=== PATIENT | male | born 1980 | race Caucasian/White ===

== ENCOUNTER → 2023-03-22 | Outpatient (REF) | payer BC, OTHER ==
[2023-03-22 17:54] LABS: MAU/CREAT RATIO 3.4 MCG/MG (0.0-30.0)
== END ==
LOC: M LAB REF 17:02
PROVIDERS: ATTEND Nurse Practitioner Family
DX: E11.65 Type 2 diabetes mellitus with hyperglycemia (principal)

== ENCOUNTER 2023-11-09 18:10 | Inpatient (IN) | payer BC ==
[~2023-11-09] VITALS: Ht 175.3 cm; Wt 132.3 kg
[2023-11-09] MEDS ORDERED: TIRZ2.5P (18:18)
[2023-11-09] MEDS ORDERED: MORP15TA2 PO (18:18)
[2023-11-09] MEDS ORDERED: LISI20TA33 (18:18)
[2023-11-09] MEDS ORDERED: TAMS1CAP17 (18:18)
[2023-11-09] MEDS ORDERED: OMEP-173 (18:18)
[2023-11-09] MEDS ORDERED: AMLO1TAB24 (18:18)
[2023-11-09] MEDS ORDERED: ALLO300T2 (18:18)
[2023-11-09] MEDS ORDERED: METO1TAB32 (18:18)
[2023-11-09] MEDS ORDERED: METF-838 (18:18)
[2023-11-09] MEDS ORDERED: ROSU20TA61 (18:18)
[2023-11-09 19:29] LABS: BASO % 0.3 % (0.0-1.0); EOS # 0.1 10^3/uL (0.0-0.5); EOS % 0.6 % (0.0-3.0); HEMATOCRIT 43.4 % (42.0-52.0); HEMOGLOBIN 14.9 g/dl (13.5-17.5); LYMPH # 2.3 10^3/uL (1.5-5.0); LYMPH % 19.3 % (24.0-44.0); MEAN CORPUSCULAR HEMOGLOBIN 30.4 pg (27.0-33.0); MEAN CORPUSCULAR HGB CONC 34.3 g/dl (32.0-36.5); MEAN CORPUSCULAR VOLUME 88.6 fl (80.0-96.0); MONO # 0.9 10^3/uL (0.0-0.8); MONO % 7.2 % (2.0-8.0); NEUTROPHILS # 8.5 10^3/uL (1.5-8.5); NEUTROPHILS % 72.2 % (36.0-66.0); PLATELET COUNT, AUTOMATED 206 10^3/uL (150-450); WHITE BLOOD COUNT 11.8 10^3/uL (4.0-10.0)
[2023-11-09] MEDS: NS 1,000 ML IV ONE (19:34)
[2023-11-09] MEDS: ONDANSETRON 4MG 2ML VIAL IV ONE (19:35)
[2023-11-09] MEDS: KETOROLAC 30 MG/ML 1ML VIAL IV ONE (19:35)
[2023-11-09 20:22] LABS: ALBUMIN 3.9 G/DL (3.2-5.2); ALKALINE PHOSPHATASE 67 U/L (46-116); ALT/SGPT 47 U/L (7.0-40); AST/SGOT 35 U/L (<34); BILIRUBIN,DIRECT 0.2 MG/DL (<0.4); BLOOD UREA NITROGEN 15 MG/DL (9-23); CALCIUM LEVEL 9.1 MG/DL (8.5-10.1); CARBON DIOXIDE LEVEL 27 MMOL/L (20-31); CHLORIDE LEVEL 103 MMOL/L (98-107); CREATININE FOR GFR 1.26 MG/DL (0.70-1.30); GLOMERULAR FILTRATION RATE > 60.0 (>60); GLUCOSE, FASTING 155 MG/DL (60-100); LIPASE 63 U/L (12-53); SODIUM LEVEL 138 MMOL/L (136-145); TOTAL PROTEIN 6.8 G/DL (5.7-8.2)
[2023-11-09] MEDS ORDERED: DEXTROSE 50% 50ML SYRINGE IV PRN (22:15)
[2023-11-09] MEDS ORDERED: GLUCAGON INJ 1MG VIAL SC PRN (22:15)
[2023-11-09] MEDS ORDERED: GLUCOSE 4 GM CHEW PO PRN (22:15)
[2023-11-09] MEDS: NS 1,000 ML IV SCH (22:56)
[2023-11-09] MEDS: cefTRIAXone SOD 1 GM in D5W MINI-BAG PLUS 50 ML IV SCH (23:52)
[2023-11-10] MEDS ORDERED: AMLO1TAB24 PO (00:05)
[2023-11-10] MEDS ORDERED: TIRZ2.5P SC (00:05)
[2023-11-10] MEDS ORDERED: METF-838 PO (00:05)
[2023-11-10] MEDS ORDERED: MORP15TA2 PO (00:05)
[2023-11-10] MEDS ORDERED: OMEP-173 PO (00:05)
[2023-11-10] MEDS ORDERED: FLOM0.4C39 PO (00:05)
[2023-11-10] MEDS ORDERED: ROSU20TA61 PO (00:05)
[2023-11-10] MEDS ORDERED: METO1TAB32 PO (00:05)
[2023-11-10] MEDS ORDERED: LISI20TA33 PO (00:05)
[2023-11-10] MEDS ORDERED: ALLO300T2 PO (00:05)
[2023-11-10] MEDS ORDERED: HOME MED LIST COMPLETE! XX SCH (00:05)
[2023-11-10 00:20] VITALS: BP 134/81; TEMP 97.7; O2SAT 97
[2023-11-10] MEDS: KETOROLAC 30 MG/ML 1ML VIAL IV PRN (00:39)
[2023-11-10] MEDS: INSULIN LISPRO (NovoLOG) PER UNIT SC SCH (00:40)
[2023-11-10] MEDS: HYDROMORPHONE HCL 0.5 MG/ 0.5 ML SYRINGE IV PRN (03:35)
[2023-11-10 05:18] VITALS: BP 134/75; TEMP 97.9; O2SAT 97
[2023-11-10] MEDS: ONDANSETRON 4MG 2ML VIAL IV PRN (06:06)
[2023-11-10 06:41] LABS: ALBUMIN 3.2 G/DL (3.2-5.2); ALKALINE PHOSPHATASE 59 U/L (46-116); ALT/SGPT 34 U/L (7.0-40); AST/SGOT 9 U/L (<34); BILIRUBIN,TOTAL 1.1 MG/DL (0.3-1.2); BLOOD UREA NITROGEN 15 MG/DL (9-23); CALCIUM LEVEL 8.7 MG/DL (8.5-10.1); CARBON DIOXIDE LEVEL 28 MMOL/L (20-31); CHLORIDE LEVEL 106 MMOL/L (98-107); CREATININE FOR GFR 1.19 MG/DL (0.70-1.30); GLOMERULAR FILTRATION RATE > 60.0 (>60); GLUCOSE, FASTING 129 MG/DL (60-100); POTASSIUM SERUM 4.4 MMOL/L (3.5-5.1); SODIUM LEVEL 139 MMOL/L (136-145); TOTAL PROTEIN 5.7 G/DL (5.7-8.2)
[2023-11-10] MEDS: DOCUSATE SODIUM 100MG CAPSULE PO SCH (08:23)
[2023-11-10] MEDS: ACETAMINOPHEN TAB 650MG DOSE (2X325MG) PO PRN (09:34)
[2023-11-10] MEDS ORDERED: MIDAZOLAM INJ 2MG/2ML VIAL As Ordered ONE (11:04)
[2023-11-10] MEDS ORDERED: LIDOCAINE 2% 100MG/5ML SDV (FOR ANES.) As Ordered ONE (11:05)
[2023-11-10] MEDS ORDERED: propofoL 200 MG/20 ML VIAL As Ordered ONE (11:05)
[2023-11-10] MEDS ORDERED: fentaNYL 100 MCG/2 ML INJECTION As Ordered ONE (11:05)
[2023-11-10 12:15] VITALS: BP 124/71; TEMP 97.7; O2SAT 95
[2023-11-10 12:45] VITALS: BP 124/71; TEMP 97.9; O2SAT 94
== END 2023-11-10 14:55 | disposition home or self-care (01) | DRG 465 ==
LOC: M ED 18:10 → M ED INP 22:15 → M MSPAV 11-10 00:12
PROVIDERS: ADMIT Preventive Medicine Undersea and Hyperbaric Medicine; ATTEND Family Medicine
PROC: 0T768DZ Dilation of Right Ureter with Intraluminal Device, Via Natural or Artificial Opening Endoscopic (ICD-10-PCS; principal; 2023-11-10 10:52)
DX: N13.2 Hydronephrosis with renal and ureteral calculous obstruction (principal); I10 Essential (primary) hypertension; E11.9 Type 2 diabetes mellitus without complications; Z79.84 Long term (current) use of oral hypoglycemic drugs; Z79.899 Other long term (current) drug therapy